=== PATIENT | female | born 1995 | race Caucasian/White ===

== ENCOUNTER 2018-02-04 01:25 | Inpatient (IN) | payer BC, OTHER ==
[2018-05-03 10:55] VITALS: BMI 47.2
[2018-05-03] MEDS ORDERED: Promethazine HCl 25 MG/ML VIAL IM PRN ×3 (11:12→14:00)
[2018-05-03] MEDS ORDERED: Ondansetron HCl/PF 4 MG/2 ML Vial IVP PRN ×4 (11:12→14:00)
[2018-05-03] MEDS ORDERED: Lactated Ringer's 1,000 ML IV SCH (11:15)
[2018-05-03] MEDS ORDERED: CEFAZOLIN/Water 2 GM/20 ML SYRINGE SLOW IVP SCH (11:15)
[2018-05-03] MEDS ORDERED: Bicitra 30 ML UDCUP PO SCH (11:15)
[2018-05-03] MEDS ORDERED: Bicitra 30 ML UDCUP ONE (11:19)
[2018-05-03] MEDS ORDERED: CEFAZOLIN/Water 2 GM/20 ML SYRINGE ONE (11:19)
[2018-05-03 11:24] LABS: Hemoglobin 12.9 g/dL (12.0-16.0); Mean Corpuscular HGB CONC 34.2 g/dL (32.0-36.0); Mean Corpuscular Hemoglobin 30.8 pg (27.0-31.0); Mean Corpuscular Volume 90.1 fL (78.0-98.0); Mean Platelet Volume 7.4 fL (7.4-10.4); Platelet Count 282 thou/uL (130-400); RBC Distribution Width 13.3 % (11.5-14.5); Red Blood Cell (RBC) Count 4.18 mill/uL (4.20-5.40); White Blood Cell (WBC) Count 13.6 thou/uL (4.8-10.8)
[2018-05-03] MEDS ORDERED: Morphine PF 1 MG/ML SYR ONE (11:46)
[2018-05-03] MEDS ORDERED: Lidocaine 1% PF 5 ML VIAL ONE (11:47)
[2018-05-03] MEDS ORDERED: PHENYLEPHRINE-NS 100 MCG/ML 10 ML SYRINGE ONE (11:47)
[2018-05-03] MEDS ORDERED: Oxytocin 10 UNITS/ML VIAL ONE ×2 (11:47→13:00)
[2018-05-03] MEDS ORDERED: ePHEDrine/0.9% NaCl/PF SYRINGE 50 mg/10 ml ONE (11:47)
[2018-05-03] MEDS ORDERED: Bupivacaine 0.75% W/DEXTROSE 8.25% 2 ML AMP ONE (11:47)
[2018-05-03] MEDS ORDERED: Ondansetron HCl/PF 4 MG/2 ML Vial ONE (11:47)
[2018-05-03] MEDS ORDERED: Promethazine HCl 25 MG/ML VIAL ONE (11:47)
[2018-05-03] MEDS ORDERED: Ketorolac Tromethamine 30 MG/ML VIAL ONE (11:47)
[2018-05-03 12:05] LABS: Syphilis Antibody Nonreactive (Nonreactive); Syphilis Antibody Index 0.05 S/CO (<1.00 Non-Reactive)
[2018-05-03 12:06] LABS: HBSAg Index 0.18 S/CO (0-0.99); Hep B Surf Ag Non-Reactive S/CO (NonReactive)
--- NOTE | 2018-05-03 12:10 | PDOC.LDHP ---
Labor and Delivery H&P Chief complaint: scheduled section HPI: 24 y/o with extremely narrow pelvis, Morbid Obesity, GHTN who has chosen to decline vaginal delivery due to her small and highly abnormal pelvic geometry. She presents for scheduled medical for GHTN and CPD. Due date: 05/15/18 Grav: 1 Para: 0 Current complications: gestational hypertension Previous surgical history: none Allergies/Adverse Reactions: Allergies Allergy/AdvReac Type Severity Reaction Status Date / Time lactose Allergy Diarrhea Verified 03/19/18 17:24 mustard Allergy Anaphylaxis Verified 03/19/18 17:23 Social history: none - Physical Exam Vital signs reviewed and normal: yes General: NAD Heart: RRR Lungs: CTAB Abdomen: gravid Extremeties: no edema FHT: category 1 - Vaginal Exam cm dilated: 0 - Assessment L&D Assessment: scheduled primary section - Plan Plan: admit to L&D, to OR for section
[2018-05-03] MEDS ORDERED: diphenhydrAMINE 50 MG/ML VIAL IVP PRN (12:27)
[2018-05-03] MEDS ORDERED: Eucerin (Mineral Oil/Petrolatum,White) 30 gm Jar TOP PRN (12:27)
[2018-05-03] MEDS ORDERED: Meperidine HCl/PF 25 MG/ML VIAL SLOW IVP PRN (12:27)
[2018-05-03] MEDS ORDERED: HYDROmorphone 2 MG/ML VIAL SLOW IVP PRN (12:27)
[2018-05-03] MEDS ORDERED: Promethazine HCl 25 MG SUPP PR PRN (12:27)
[2018-05-03] MEDS ORDERED: Naloxone HCl 0.4 mg/ml Vial IV PRN (12:27)
[2018-05-03] MEDS ORDERED: Ketorolac Tromethamine 30 MG/ML VIAL IVP PRN ×2 (12:27→17:30)
[2018-05-03] MEDS ORDERED: Naloxone HCl 0.4 mg/ml Vial IVP PRN ×4 (12:27→17:30)
[2018-05-03] MEDS ORDERED: Ketorolac Tromethamine 30 MG/ML VIAL IVP SCH (12:30)
[2018-05-03] MEDS ORDERED: Communication Order-Pharmacy FS SCH (12:30)
[2018-05-03] MEDS ORDERED: Sodium Chloride 0.9% 10 ML ONE (13:00)
[2018-05-03] MEDS ORDERED: Fentanyl 100 MCG/2 ML VIAL ONE (13:12)
[2018-05-03] MEDS ORDERED: Ibuprofen 800 MG TAB PO SCH (14:00)
[2018-05-03] MEDS ORDERED: NS / Oxytocin 40 units/1000ml 1,000 ML IV SCH (14:00)
[2018-05-03] MEDS ORDERED: Adacel (T-DAP) 0.5 ML VIAL IM ONE (14:00)
[2018-05-03] MEDS ORDERED: Simethicone Chewable 80 MG TAB PO PRN (14:00)
[2018-05-03] MEDS ORDERED: Measles/Mumps/Rubella 10 MCG/0.5 ML VIAL SC ONE (14:00)
[2018-05-03] MEDS ORDERED: Misoprostol 200 MCG TAB PR PRN (14:00)
[2018-05-03] MEDS ORDERED: Bisacodyl 10 MG SUPP PR PRN (14:00)
[2018-05-03] MEDS ORDERED: diphenhydrAMINE 25 MG CAP PO PRN (14:00)
[2018-05-03] MEDS ORDERED: Varicella virus, LIVE 0.5 ML VIAL SC ONE (14:00)
[2018-05-03] MEDS ORDERED: Lanolin Ointment 7 GM TUBE TOP PRN (14:00)
[2018-05-03] MEDS: Docusate Calcium (SURFAK) 240 MG CAP PO SCH (21:27)
[2018-05-04] MEDS ORDERED: Zolpidem Tartrate 5 MG TAB PO PRN (00:30)
[2018-05-04] MEDS: HYDROcodone/Acetaminophen 5/325 mg Tablet PO PRN ×3 (02:40→12:39)
[2018-05-04 05:09] LABS: Hemoglobin 10.6 g/dL (12.0-16.0); Mean Corpuscular HGB CONC 34.2 g/dL (32.0-36.0); Mean Corpuscular Volume 90.7 fL (78.0-98.0); Mean Platelet Volume 7.1 fL (7.4-10.4); Platelet Count 237 thou/uL (130-400); RBC Distribution Width 13.2 % (11.5-14.5); Red Blood Cell (RBC) Count 3.42 mill/uL (4.20-5.40); White Blood Cell (WBC) Count 14.7 thou/uL (4.8-10.8)
[2018-05-04] MEDS: Docusate Calcium (SURFAK) 240 MG CAP PO SCH ×2 (08:57→21:28)
[2018-05-04] MEDS: Ibuprofen 800 MG TAB PO SCH (18:24)
[2018-05-05] MEDS: HYDROcodone/Acetaminophen 5/325 mg Tablet PO PRN ×3 (01:11→12:14)
[2018-05-05] MEDS: Ibuprofen 800 MG TAB PO SCH ×2 (04:44→14:16)
[2018-05-05] MEDS: Docusate Calcium (SURFAK) 240 MG CAP PO SCH (08:56)
[2018-05-05 12:09] VITALS: BP 119/70; TEMP 98.1
--- NOTE | 2018-05-05 14:55 | PDOC.PP ---
Post Progress Note Post Day #: 1 PO intake tolerated: yes Flatus: yes Ambulation: yes Vital Signs (12 hours) Temp Pulse Resp BP BP Pulse Ox 05/05/18 11:50 98.1 F 97 18 119/70 98 05/05/18 07:35 98.6 F 80 16 119/73 98 Weight Weight 258 lb - Physical Examination General: NAD Cardiovascular: no m/r/g Respiratory: clear to auscultation bilaterally Abdominal: + bowel sounds Skin: CS incision dry & intact Neurological: no gross focal deficits Psychiatric: A&Ox3 Result Diagrams: 05/04/18 04:33 Additional Labs: Post Labs Blood Type O POSITIVE 05/03/18 10:52 Hep Bs Antigen Non-Reactive S/CO (NonReactive) 05/03/18 10:52 - Assessment/Plan POD #1 s/p primary . Doing welll
--- NOTE | 2018-05-05 14:59 | PDOC.PP ---
Post Progress Note Post Day #: 1 PO intake tolerated: yes Flatus: yes Ambulation: yes Vital Signs (12 hours) Temp Pulse Resp BP BP Pulse Ox 05/05/18 11:50 98.1 F 97 18 119/70 98 05/05/18 07:35 98.6 F 80 16 119/73 98 Weight Weight 258 lb - Physical Examination General: NAD Cardiovascular: no m/r/g Respiratory: clear to auscultation bilaterally Abdominal: + bowel sounds Extremities: negative homans (B) Skin: CS incision dry & intact Neurological: no gross focal deficits Psychiatric: A&Ox3 Result Diagrams: 05/04/18 04:33 Additional Labs: Post Labs Blood Type O POSITIVE 05/03/18 10:52 Hep Bs Antigen Non-Reactive S/CO (NonReactive) 05/03/18 10:52 - Assessment/Plan Patient is POD 1. and doing well. Continue care.
--- NOTE | 2018-05-05 15:14 | OP-2 ---
DATE OF PROCEDURE: 05/03/2018 PREOPERATIVE DIAGNOSES: Intrauterine at 38 weeks with a history of gestational hypertensio n and cephalopelvic disproportion. POSTOPERATIVE DIAGNOSES: Intrauterine at 38 weeks with a history of gestational hypertensi on and cephalopelvic disproportion. PROCEDURE: Primary low transverse section. FINDINGS: Viable male infant weighing 3483 grams or 7 pounds 11 ounces, Apgars of 8 and 9. QUANTITATIVE BLOOD LOSS: 1005 mL COMPLICATIONS: None. DETAILS OF THE PROCEDURE: The patient was consented and taken back to the operating room where spina l anesthesia was found to be adequate. She was then prepped and draped in the normal sterile fashion . A time out was performed by the entire operative team. The incision was then marked with a marking pen tested using sharp pickups. An incision was then made with a scalpel. The incision was carried through the adipose tissue down to the underlying rectus fascia using both sharp dissection as well as cautery. Once the fascia was identified, it was incised in the midline and then the fascial incis ion was carried through in both lateral directions using sharp as well as cautery dissection techniqu es. Next, the superior aspect of the rectus fascia was grasped with 2 Darrin clamps which was tented up and the rectus muscles were dissected off using blunt dissection as well as cautery dissection. Similarly, the inferior aspect of the fascial incision was grasped with 2 Darrin clamps, tented up an d the rectus muscles were dissected off bluntly as well as sharply. Next, the rectus muscles were se parated in the midline and the peritoneum identified. The peritoneum was then carefully grasped with two hemostats and entered sharply. The peritoneal incision was extended superiorly and inferiorly a nd bladder blade was placed in the lower abdomen. At this point, the uterus was identified and the b ladder flap was then developed using pickups with teeth as well as Metzenbaum scissors in both latera l directions. The bladder flap was then dissected downwards using the skoog operator's finger as well as M etzenbaum scissors. The bladder blade was replaced. The lower uterine segment was then identified a nd entered sharply using a clean scalpel. The uterine incision was then dissected downwards until th in layer of muscle remained and this was entered bluntly using a hemostat to avoid any injury to the baby. The uterine incision was then stretched using two fingers in both lateral directions. An amniotomy was performed artificially using a hemostat and the baby was delivered using fundal pres sure in a gentle fashion. Once out, the baby's mouth and nose were bulb suctioned, cord clamped and cut, and the baby was handed to waiting attendants. Next, the uterus was exteriorized, cleared of al l clots and debris and the uterine incision was repaired with #1 Monocryl in a running locking fashio n. A second suture of the same type was used to obtain complete hemostasis at the uterine incision. The bladder flap was reapproximated using 3-0 Monocryl. Next, patient's left and right adnexa were inspected and appeared to be within normal limits. The posterior cul-de-sac was blotted dry and hemo stasis assured. One more look at the uterine incision demonstrated hemostasis. Next, the uterus was replaced back within the abdomen. The peritoneum was reapproximated using 2-0 Monocryl without diff iculty. The rectus muscles were then allowed to come back together and 0 chromic was used to aid in reapproximation of the muscle as necessary. The rectus fascia was then reapproximated in a running f ashion using 0 Vicryl suture. The adipose tissue was then examined and appeared to be well approxima yakelin without any obvious separations. Finally, the skin was reapproximated with 3-0 Monocryl on a Solo th needle without difficulty and Dermabond adhesive was applied to the skin. Once the glue was dry, the drapes were removed and the patient was transferred to an ambulatory bed where she was taken to [facility] awake and in stable condition. Sponge, lap, and needle counts were correct x3.
== END 2018-05-05 17:55 | disposition home or self-care (01) | DRG 765 ==
LOC: L&D 05-03 10:04 → 3SW 05-03 16:13
PROVIDERS: ADMIT Obstetrics & Gynecology; ATTEND Obstetrics & Gynecology
PROC: 10907ZC Drainage of Amniotic Fluid, Therapeutic from Products of Conception, Via Natural or Artificial Opening (ICD-10-PCS; principal; 2018-05-03)
PROC: 10D00Z1 Extraction of Products of Conception, Low, Open Approach (ICD-10-PCS; 2018-05-03)
DX: O13.3 Gestational [pregnancy-induced] hypertension without significant proteinuria, third trimester (principal); Z68.42 Body mass index [BMI] 45.0-49.9, adult; O99.214 Obesity complicating childbirth; E66.01 Morbid (severe) obesity due to excess calories; O33.9 Maternal care for disproportion, unspecified; O99.52 Diseases of the respiratory system complicating childbirth; Z3A.38 38 weeks gestation of pregnancy; Z37.0 Single live birth; J44.9 Chronic obstructive pulmonary disease, unspecified
CPT/HCPCS: 36415; 51702; 85027; 86780; 86850; 86900; 86901; 87340; 88305; 90707; 90715; 90716; J1885; J2001; J2274; J2405; J2550; J2590; J3010; J3490

== ENCOUNTER 2018-03-19 16:52 | Day surgery (SDC) | payer BC, OTHER ==
[2018-03-19 17:25] VITALS: BMI 45.7
[2018-03-19 17:26] VITALS: BP 128/76; TEMP 98.4
[2018-03-19 18:47] LABS: Bilirubin Negative (Negative); Blood, Urine Negative (Negative); Clarity CLOUDY (Clear); Glucose, Urine (Dipstick) Negative (Negative); Leukocyte Negative (Negative); Nitrite Negative (Negative); Protein, Urine (Dipstick) Negative (Neg-Trace); Urobilinogen 0.2 mg/dL (0.2-1.0); pH, Urine 7.5 (5.0-9.0)
[2018-03-19 18:49] LABS: Bacteria/HPF Rare-Few HPF (None Seen); Hyaline Casts/LPF 0-3 HYALINE CAST LPF (0-3 Hyaline); Pathc Cast-AUWi Flag 0.43 (0-2.49); RBC/HPF 0-3 HPF (0-3)
--- NOTE | 2018-03-20 10:20 | SS ---
DATE OF SERVICE: 03/19/2018 OB ER ENCOUNTER PRIMARY OB: Dr. Santos Hutton. CHIEF COMPLAINT: Abdominal pains and pelvic pain. HISTORY OF PRESENT ILLNESS: The patient is a 22-year-old G1, P0 female with an intrauterine pregnanc y at 32 weeks and 3 days, followed by Dr. Santos Chester. The patient is presenting with a 2-week hist ory of abdominal pains with a worsening of her pain in the last 24 hours. The patient describes the pain that is sharp and associated with movement and activity, also reports the pain that comes and go es with tightening of her stomach that comes at intervals that patient is unable to report how often these pains are happening. The patient's mother is leaving town soon and just wants to be sure thing s are okay before she leaves. The patient denies any recent illness, fever, fall, headache, chest pa in, shortness of breath, nausea, vomiting. She denies diarrhea, constipation. She denies hip proble ms, knee problems, muscle weakness. She reports that her pain is mainly in the left lower quadrant w ith activity. PAST MEDICAL HISTORY: Significant for Tourette's and anxiety. PAST SURGICAL HISTORY: Noncontributory. ALLERGIES: No known drug allergies. MEDICATIONS: vitamins. SOCIAL HISTORY: Denies drug, alcohol or tobacco use. REVIEW OF SYSTEMS: Per HPI. PHYSICAL EXAMINATION: VITAL SIGNS: Blood pressure 128/76, heart rate of 104, respiratory rate 18, satting 99% on room air, temperature 98.4. GENERAL: She appears to be in no acute distress. She is alert and oriented, cooperative and pleasan t to interact with. HEENT: Head is normocephalic, atraumatic. CHEST: Clear to auscultation bilaterally. HEART: Has regular rate and rhythm. ABDOMEN: Soft. She does have some tenderness with deviation of the uterus to the patient's right cr eating left-sided tenderness, associated with some of the reported pain. EXTREMITIES: Nontender, nonedematous. PELVIC: Vulva is without masses, lesions or erythema. Vagina is moist, with some discharge, primari ly white and with smooth texture. The cervix is closed and firm on digital exam. heart tracing performed for abdominal pain in for approximately 45 minutes to an hour . Baseline is noted to be in the 140s with moderate long-term variability, positive 15 x 15 accelera tions. Tocometer did not show any contractions visible on the monitor. LABORATORY STUDIES: Urinalysis and ORACLE PROGRAMMER ANALYST-3 were performed for evaluation of urinary tract infection and vaginitis screen. The urine was negative for protein, glucose, ketones, nitrites, leukocyte esteras e. She had 4-6 white blood cells and 7-10 squamous cells and rare to few bacteria. ORACLE PROGRAMMER ANALYST-3 was positiv e for Gardnerella, negative for yeast or Trichomonas. ASSESSMENT AND PLAN: The patient is a 22-year-old female with an intrauterine at 32 weeks, presenting for abdominal pains that have worsened in the last 24 hours intermittently, much of her p ain I believe is associated with musculoskeletal pains of . She may be having some contract ions irregularly, but unable to identify any evidence of labor. Cervix is closed and firm with no ev idence of presenting parts through the vaginal wall. The patient does have bacterial vaginosis and has been given metronidazole 500 mg to be taken twice a day for the next 7 days. She has been g iven labor precautions and been asked to call Dr. Hutton tomorrow to make a followup visit.
== END 2018-03-19 20:15 | disposition home or self-care (01) ==
LOC: L&D/OP 16:52
PROVIDERS: ATTEND Obstetrics & Gynecology
DX: O99.89 Other specified diseases and conditions complicating pregnancy, childbirth and the puerperium (principal); R10.9 Unspecified abdominal pain; R10.2 Pelvic and perineal pain; Z3A.32 32 weeks gestation of pregnancy
CPT/HCPCS: 81001; 87480; 87510; 87660

== ENCOUNTER 2018-12-14 22:45 | Emergency (ER) | payer BC, OTHER ==
[2018-12-14 23:14] LABS: Bilirubin Negative (Negative); Blood, Urine Trace (Negative); Clarity CLOUDY (Clear); Glucose, Urine (Dipstick) Negative (Negative); Leukocyte Negative (Negative); Nitrite Negative (Negative); Protein, Urine (Dipstick) Negative (Neg-Trace); Specific Gravity, Urine 1.025 (1.002-1.036); Urobilinogen 0.2 mg/dL (0.2-1.0); pH, Urine 5.5 (5.0-9.0)
[2018-12-14 23:15] LABS: Bacteria/HPF 1+ HPF (None Seen); Hyaline Casts/LPF 0-3 HYALINE CAST LPF (0-3 Hyaline); Pathc Cast-AUWi Flag 0.54 (0-2.49)
[2018-12-14 23:17] LABS: Pregnancy Test - Urine (BHCG) Negative (Negative); Pregu Control Background? CLEAR/WHITE (CLR/WHITE); Pregu Control Bar Appear? YES (CONTROL BAR); Specific Gravity 1.025 (1.002-1.036)
[2018-12-14 23:31] LABS: #Basophils 0.1 thou/uL (0.0-0.2); #Eosinphils 0.1 thou/uL (0.0-0.7); #Lymphocytes 3.2 thou/uL (1.20-3.40); #Monocytes 0.8 thou/uL (0.11-0.59); #Neutrophils 6.7 thou/uL (1.40-6.50); %Basophils 0.6 % (0.0-1.0); %Eosinophils 0.9 % (0.0-10.0); %Lymphocytes 29.7 % (21.0-51.0); %Neutrophils 61.9 % (42.0-75.0); Mean Corpuscular HGB CONC 33.4 g/dL (32.0-36.0); Mean Corpuscular Hemoglobin 30.3 pg (27.0-31.0); Mean Corpuscular Volume 90.6 fL (78.0-98.0); Mean Platelet Volume 7.3 fL (7.4-10.4); Platelet Count 298 thou/uL (130-400); RBC Distribution Width 12.4 % (11.5-14.5); Red Blood Cell (RBC) Count 4.28 mill/uL (4.20-5.40); White Blood Cell (WBC) Count 10.8 thou/uL (4.8-10.8)
[2018-12-14] MEDS ORDERED: Ketorolac Tromethamine 30 MG/ML VIAL ONE (23:34)
[2018-12-14 23:42] LABS: ALT (SGPT) 16 U/L (8-55); AST (SGOT) 13 U/L (5-34); Albumin 4.3 g/dL (3.5-5.0); Alkaline Phosphatase 103 U/L (40-150); Anion Gap 12 mmol/L (10-20); BUN (Urea Nitrogen) 19 mg/dL (7.0-18.7); Bilirubin, Total 0.3 mg/dL (0.2-1.2); Calc. Creatinine Clearance 0 mL/min (70-130); Calcium 9.4 mg/dL (7.8-10.44); Carbon Dioxide 26 mmol/L (22-29); Chloride 103 mmol/L (98-107); Estimated GFR-MDRD 80; Globulin 3.4 g/dL (2.4-3.5); Glucose 83 mg/dL (70-105); Potassium 3.7 mmol/L (3.5-5.1); Protein, Total 7.7 g/dL (6.0-8.3); Sodium 137 mmol/L (136-145)
--- NOTE | 2018-12-15 07:34 | ULT ---
TRANSABDOMINAL PELVIC ULTRASOUND: INDICATION: Right lower quadrant abdominal pain with nausea. TECHNIQUE: Moya scale, color Doppler, and spectral Doppler images were obtained of the pelvis via transabdominal approach only. FINDINGS: The uterus measures 10.3 x 3.8 x 4.1 cm. The endometrial stripe measures 8.6 mm. The right ovary measures 3 x 1.9 x 24 cm. The left ovary measures 2.8 x 2.1 x 2.4 cm. There is norm al flow to both ovaries. No free fluid is evident. IMPRESSION: Sonographically normal pelvis. POS: BH
== END 2018-12-15 02:31 | disposition home or self-care (01) ==
LOC: ERS 22:45
DX: R10.31 Right lower quadrant pain (principal); F41.9 Anxiety disorder, unspecified
CPT/HCPCS: 36415; 76856; 80053; 81003; 81015; 81025; 85025; 93976; 96372; J1885

== ENCOUNTER 2021-12-20 18:11 | Emergency (ER) | payer OTHER, SELFPAY | END 2021-12-20 20:37 | disposition home or self-care (01) | LOC: ERS 18:11 | DX: R51.9 Headache, unspecified (principal) | CPT/HCPCS: 70450 ==

== ENCOUNTER 2022-04-10 17:28 | Emergency (ER) | payer BC, SELFPAY ==
[2022-04-10 18:04] LABS: #Basophils 0.1 thou/uL (0.0-0.2); #Eosinphils 0.1 thou/uL (0.0-0.7); #Lymphocytes 2.3 thou/uL (1.20-3.40); #Monocytes 0.6 thou/uL (0.11-0.59); %Basophils 0.5 % (0.0-1.0); %Eosinophils 0.8 % (0.0-10.0); %Lymphocytes 20.6 % (21.0-51.0); %Monocytes 5.6 % (0.0-10.0); %Neutrophils 72.6 % (42.0-75.0); Hemoglobin 12.7 g/dL (12.0-16.0); Mean Corpuscular HGB CONC 33.3 g/dL (32.0-36.0); Mean Corpuscular Volume 93.2 fL (78.0-98.0); Mean Platelet Volume 7.2 fL (7.4-10.4); Platelet Count 304 thou/uL (130-400); RBC Distribution Width 11.8 % (11.5-14.5); Red Blood Cell (RBC) Count 4.08 mill/uL (4.20-5.40)
[2022-04-10 18:11] LABS: BHCG - Serum Negative (NEGATIVE); Pregs Control Background? CLEAR/WHITE (CLR/WHITE); Pregs Control Bar Appear? YES (CONTROL BAR)
[2022-04-10 18:24] LABS: ALT (SGPT) 15 U/L (8-55); AST (SGOT) 11 U/L (5-34); Albumin 4.2 g/dL (3.5-5.0); Alkaline Phosphatase 75 U/L (40-110); Anion Gap 16 mmol/L (10-20); BUN (Urea Nitrogen) 14 mg/dL (7.0-18.7); Bilirubin, Total 0.2 mg/dL (0.2-1.2); Calc. Creatinine Clearance 0 mL/min (70-130); Calcium 9.3 mg/dL (7.8-10.44); Carbon Dioxide 24 mmol/L (22-29); Chloride 104 mmol/L (98-107); Estimated GFR 85; Globulin 3.4 g/dL (2.4-3.5); Glucose 93 mg/dL (70-105); Potassium 3.8 mmol/L (3.5-5.1); Protein, Total 7.6 g/dL (6.0-8.3); Sodium 140 mmol/L (136-145)
== END 2022-04-10 19:05 | disposition home or self-care (01) ==
LOC: ERS 17:28
DX: R07.2 Precordial pain (principal)
CPT/HCPCS: 36415; 71045; 80053; 84703; 85025; 93005

== ENCOUNTER 2023-04-27 16:58 | Emergency (ER) | payer BC ==
[2023-04-27 17:39] LABS: Pregnancy Test - Urine (BHCG) Negative (Negative); Pregu Control Background? CLEAR/WHITE (CLR/WHITE); Pregu Control Bar Appear? YES (CONTROL BAR); Specific Gravity 1.014 (1.002-1.036)
[2023-04-27 17:51] LABS: #Basophils 0.1 thou/uL (0.0-0.2); #Eosinphils 0.1 thou/uL (0.0-0.7); #Monocytes 0.8 thou/uL (0.11-0.59); #Neutrophils 7.8 thou/uL (1.40-6.50); %Basophils 0.4 % (0.0-1.0); %Eosinophils 1.1 % (0.0-10.0); %Lymphocytes 26.1 % (21.0-51.0); %Monocytes 6.7 % (0.0-10.0); %Neutrophils 65.2 % (42.0-75.0); Hematocrit 38.1 % (36.0-47.0); Hemoglobin 12.5 g/dL (12.0-16.0); Mean Corpuscular HGB CONC 32.8 g/dL (32.0-36.0); Mean Corpuscular Hemoglobin 28.9 pg (27.0-31.0); Mean Platelet Volume 9.4 fL (7.4-10.4); Platelet Count 288 10x3/uL (130-400); RBC Distribution Width 13.2 % (11.5-14.5); Red Blood Cell (RBC) Count 4.33 mill/uL (4.20-5.40); White Blood Cell (WBC) Count 11.9 10x3/uL (4.8-10.8)
[2023-04-27 17:59] LABS: BHCG - Serum Negative (NEGATIVE); Pregs Control Background? CLEAR/WHITE (CLR/WHITE); Pregs Control Bar Appear? YES (CONTROL BAR)
[2023-04-27 18:16] LABS: ALT (SGPT) 17 U/L (8-55); AST (SGOT) 12 U/L (5-34); Albumin 4.2 g/dL (3.5-5.0); Alkaline Phosphatase 95 U/L (40-110); Anion Gap 12 mmol/L (10-20); BUN (Urea Nitrogen) 15 mg/dL (7.0-18.7); Bilirubin, Total 0.2 mg/dL (0.2-1.2); Calc. Creatinine Clearance 0 mL/min (70-130); Calcium 9.7 mg/dL (7.8-10.44); Carbon Dioxide 24 mmol/L (22-29); Chloride 103 mmol/L (98-107); Estimated GFR 85; Globulin 3.4 g/dL (2.4-3.5); Glucose 107 mg/dL (70-105); Lipase 21 U/L (8-78); Potassium 3.9 mmol/L (3.5-5.1); Protein, Total 7.6 g/dL (6.0-8.3); Sodium 135 mmol/L (136-145)
[2023-04-27 19:32] LABS: Bacteria/HPF None Seen HPF (None Seen); Bilirubin Negative (Negative); Blood, Urine Trace (Negative); CAUTI Indications for Culture Pregnancy; Clarity Clear (Clear); Glucose, Urine (Dipstick) Normal (Negative); Ketone, Urine Negative (Negative); Leukocyte Negative Leu/uL (Negative); Nitrite Negative (Negative); Protein, Urine (Dipstick) Negative (Neg-Trace); RBC/HPF 0-3 HPF (0-3); Specific Gravity, Urine 1.014 (1.002-1.036); Squamous Epithelial 0-3 HPF (0-3); Urobilinogen Normal mg/dL (Less than 2); WBC/HPF 0-3 HPF (0-3)
[2023-04-27 19:35] LABS: Urine Culture Reflex Yes Yes
== END 2023-04-27 19:21 | disposition home or self-care (01) ==
LOC: ERS 16:58
DX: R53.83 Other fatigue (principal)
CPT/HCPCS: 36415; 80053; 81001; 81025; 83690; 84703; 85025; 87086; 99283

== ENCOUNTER 2023-05-04 09:26 | Emergency (ER) | payer BC ==
[2023-05-04 09:51] LABS: #Eosinphils 0.2 thou/uL (0.0-0.7); #Monocytes 0.7 thou/uL (0.11-0.59); #Neutrophils 7.1 thou/uL (1.40-6.50); %Basophils 0.4 % (0.0-1.0); %Eosinophils 1.5 % (0.0-10.0); %Lymphocytes 21.8 % (21.0-51.0); %Monocytes 6.7 % (0.0-10.0); %Neutrophils 69.1 % (42.0-75.0); Hematocrit 39.2 % (36.0-47.0); Hemoglobin 12.9 g/dL (12.0-16.0); Mean Corpuscular HGB CONC 32.9 g/dL (32.0-36.0); Mean Corpuscular Hemoglobin 29.1 pg (27.0-31.0); Mean Corpuscular Volume 88.5 fl (78.0-98.0); Mean Platelet Volume 9.4 fL (7.4-10.4); Platelet Count 272 10x3/uL (130-400); RBC Distribution Width 13.3 % (11.5-14.5); Red Blood Cell (RBC) Count 4.43 mill/uL (4.20-5.40); White Blood Cell (WBC) Count 10.2 10x3/uL (4.8-10.8)
[2023-05-04 09:52] LABS: Bacteria/HPF None Seen HPF (None Seen); Bilirubin Negative (Negative); Blood, Urine Trace (Negative); CAUTI Indications for Culture Pregnancy; Clarity Clear (Clear); Glucose, Urine (Dipstick) Normal (Negative); Ketone, Urine Negative (Negative); Leukocyte Negative Leu/uL (Negative); Nitrite Negative (Negative); Protein, Urine (Dipstick) Negative (Neg-Trace); RBC/HPF 0-3 HPF (0-3); Squamous Epithelial 0-3 HPF (0-3); Urobilinogen Normal mg/dL (Less than 2); WBC/HPF 0-3 HPF (0-3)
[2023-05-04 09:55] LABS: Urine Culture Reflex Yes Yes
[2023-05-04 10:15] LABS: ALT (SGPT) 15 U/L (8-55); AST (SGOT) 12 U/L (5-34); Albumin 4.1 g/dL (3.5-5.0); Alkaline Phosphatase 95 U/L (40-110); Anion Gap 12 mmol/L (10-20); BUN (Urea Nitrogen) 12 mg/dL (7.0-18.7); Bilirubin, Total 0.3 mg/dL (0.2-1.2); Calc. Creatinine Clearance 0 mL/min (70-130); Carbon Dioxide 25 mmol/L (22-29); Chloride 103 mmol/L (98-107); Estimated GFR 92; Globulin 3.5 g/dL (2.4-3.5); Glucose 107 mg/dL (70-105); Lipase 22 U/L (8-78); Magnesium 1.8 mg/dL (1.6-2.6); Potassium 3.6 mmol/L (3.5-5.1); Protein, Total 7.6 g/dL (6.0-8.3); Sodium 136 mmol/L (136-145)
[2023-05-04 10:19] LABS: Troponin I Less than 0.010 ng/mL (< 0.028)
== END 2023-05-04 11:05 | disposition home or self-care (01) ==
LOC: ERS 09:26
DX: I47.1 Supraventricular tachycardia (principal)
CPT/HCPCS: 71045; 80053; 81001; 83690; 83735; 84484; 84702; 85025; 87086; 93005

== ENCOUNTER 2023-05-04 15:53 | Emergency (ER) | payer BC ==
[~2023-05-04 15:53] MED LIST: Iopamidol-370 76% 500 ML MDV (1 ML CHARGE) ONE
== END 2023-05-04 18:03 | disposition home or self-care (01) ==
LOC: ERS 15:53
DX: R00.2 Palpitations (principal)
CPT/HCPCS: 71045; 71275; 80053; 81001; 83690; 83735; 84484; 84702; 85025; 87086; 93005; 96360; 99283; Q9967

== ENCOUNTER 2023-07-26 00:14 | Emergency (ER) | payer BC | END 2023-07-26 02:00 | disposition left against medical advice (07) | LOC: ERS 00:14 | DX: Z53.21 Procedure and treatment not carried out due to patient leaving prior to being seen by health care provider (principal) | CPT/HCPCS: 93005 ==

== ENCOUNTER 2024-05-31 19:03 | Emergency (ER) | payer BC ==
[2024-05-31 19:49] LABS: #Basophils 0.05 10x3/uL (0.0-0.2); #Eosinophils Less than 0.03 10x3/uL (0.0-0.7); %Basophils 0.4 % (0.0-1.0); %Eosinophils 0.1 % (0.0-10.0); %Lymphocytes 18.4 % (21.0-51.0); %Monocytes 4.7 % (0.0-10.0); %Neutrophils 76.1 % (42.0-75.0); Hematocrit 39.1 % (36.0-47.0); Hemoglobin 12.5 g/dL (12.0-16.0); Mean Corpuscular Hemoglobin 27.5 pg (27.0-31.0); Mean Corpuscular Volume 85.9 fL (78.0-98.0); Mean Platelet Volume 9.3 fL (7.4-10.4); Platelet Count 355 10x3/uL (130-400); RBC Distribution Width 16.1 % (11.5-14.5); Red Blood Cell (RBC) Count 4.55 mill/uL (4.20-5.40)
[2024-05-31] MEDS ORDERED: Metoprolol Tartrate 5 MG (5 mL) VIAL ONE (19:55)
[2024-05-31 19:58] LABS: BHCG - Serum Negative (NEGATIVE); Pregs Control Background? CLEAR/WHITE (CLR/WHITE); Pregs Control Bar Appear? YES (CONTROL BAR)
[2024-05-31 20:05] LABS: ALT (SGPT) 13 U/L (8-55); AST (SGOT) 11 U/L (5-34); Albumin 3.6 g/dL (3.5-5.0); Alkaline Phosphatase 79 U/L (40-110); Anion Gap 14 mmol/L (10-20); BUN (Urea Nitrogen) 14 mg/dL (7.0-18.7); Bilirubin, Total 0.2 mg/dL (0.2-1.2); Calc. Creatinine Clearance 0 mL/min (70-130); Calcium 9.5 mg/dL (7.8-10.44); Carbon Dioxide 24 mmol/L (22-29); Chloride 106 mmol/L (98-107); Estimated GFR 83; Globulin 3.9 g/dL (2.4-3.5); Glucose 125 mg/dL (70-105); Lipase 23 U/L (8-78); Potassium 3.6 mmol/L (3.5-5.1); Protein, Total 7.5 g/dL (6.0-8.3); Sodium 140 mmol/L (136-145)
[2024-05-31 20:10] LABS: Troponin I Less than 0.010 ng/mL (< 0.028)
== END 2024-05-31 20:47 | disposition home or self-care (01) ==
LOC: ERS 19:03
DX: R07.89 Other chest pain (principal)
CPT/HCPCS: 36415; 71045; 80053; 83690; 84484; 84703; 85025; 85379; 93005; 96374

== ENCOUNTER → 2024-06-12 | Emergency (ER) | payer BC | LOC: ERS 16:48 | DX: Z53.21 Procedure and treatment not carried out due to patient leaving prior to being seen by health care provider (principal) ==

== ENCOUNTER 2024-08-06 12:06 | Emergency (ER) | payer BC ==
[2024-08-06 12:51] LABS: #Basophils 0.04 10x3/uL (0.0-0.2); %Basophils 0.4 % (0.0-1.0); %Eosinophils 1.7 % (0.0-10.0); %Monocytes 5.2 % (0.0-10.0); %Neutrophils 59.3 % (42.0-75.0); Hematocrit 38.7 % (36.0-47.0); Hemoglobin 12.3 g/dL (12.0-16.0); Mean Corpuscular HGB CONC 31.8 g/dL (32.0-36.0); Mean Corpuscular Hemoglobin 28.1 pg (27.0-31.0); Mean Corpuscular Volume 88.4 fL (78.0-98.0); Mean Platelet Volume 9.2 fL (7.4-10.4); Platelet Count 279 10x3/uL (130-400); RBC Distribution Width 13.8 % (11.5-14.5); Red Blood Cell (RBC) Count 4.38 mill/uL (4.20-5.40)
[2024-08-06 13:13] LABS: ALT (SGPT) 13 U/L (8-55); AST (SGOT) 14 U/L (5-34); Albumin 3.4 g/dL (3.5-5.0); Alkaline Phosphatase 69 U/L (40-110); Anion Gap 12 mmol/L (10-20); BUN (Urea Nitrogen) 13 mg/dL (7.0-18.7); Bilirubin, Total 0.2 mg/dL (0.2-1.2); Calc. Creatinine Clearance 0 mL/min (70-130); Calcium 8.4 mg/dL (7.8-10.44); Carbon Dioxide 23 mmol/L (22-29); Chloride 107 mmol/L (98-107); Estimated GFR 99; Globulin 2.9 g/dL (2.4-3.5); Glucose 87 mg/dL (70-105); Magnesium 1.9 mg/dL (1.6-2.6); Potassium 3.9 mmol/L (3.5-5.1); Protein, Total 6.3 g/dL (6.0-8.3); Sodium 138 mmol/L (136-145)
[2024-08-06 13:25] LABS: BHCG - Serum Negative (NEGATIVE); Pregs Control Background? CLEAR/WHITE (CLR/WHITE); Pregs Control Bar Appear? YES (CONTROL BAR)
== END 2024-08-06 14:05 | disposition home or self-care (01) ==
LOC: ERS 12:06
DX: I47.10 Supraventricular tachycardia, unspecified (principal)
CPT/HCPCS: 36415; 80053; 83735; 84703; 85025; 93005; 99284

== ENCOUNTER 2024-08-31 19:04 | Emergency (ER) | payer BC ==
[2024-08-31 20:58] LABS: #Basophils 0.05 10x3/uL (0.0-0.2); %Basophils 0.4 % (0.0-1.0); %Eosinophils 0.7 % (0.0-10.0); %Lymphocytes 22.9 % (21.0-51.0); %Monocytes 6.9 % (0.0-10.0); %Neutrophils 68.7 % (42.0-75.0); Hematocrit 41.6 % (36.0-47.0); Hemoglobin 13.7 g/dL (12.0-16.0); Mean Corpuscular HGB CONC 32.9 g/dL (32.0-36.0); Mean Corpuscular Volume 87.9 fL (78.0-98.0); Mean Platelet Volume 9.7 fL (7.4-10.4); Platelet Count 362 10x3/uL (130-400); RBC Distribution Width 14.2 % (11.5-14.5); Red Blood Cell (RBC) Count 4.73 mill/uL (4.20-5.40)
[2024-08-31 21:11] LABS: ALT (SGPT) 12 U/L (8-55); AST (SGOT) 13 U/L (5-34); Albumin 3.5 g/dL (3.5-5.0); Alkaline Phosphatase 83 U/L (40-110); Anion Gap 13 mmol/L (10-20); BUN (Urea Nitrogen) 13 mg/dL (7.0-18.7); Bilirubin, Total 0.2 mg/dL (0.2-1.2); Calc. Creatinine Clearance 0 mL/min (70-130); Calcium 8.6 mg/dL (7.8-10.44); Carbon Dioxide 25 mmol/L (22-29); Chloride 105 mmol/L (98-107); Estimated GFR 95; Globulin 3.3 g/dL (2.4-3.5); Glucose 100 mg/dL (70-105); Potassium 3.7 mmol/L (3.5-5.1); Protein, Total 6.8 g/dL (6.0-8.3); Sodium 139 mmol/L (136-145)
[2024-08-31 21:14] LABS: Troponin I Less than 0.010 ng/mL (< 0.028)
== END 2024-08-31 21:46 | disposition home or self-care (01) ==
LOC: ERS 19:04
DX: R00.0 Tachycardia, unspecified (principal); R00.2 Palpitations; R11.10 Vomiting, unspecified
CPT/HCPCS: 71045; 80053; 84484; 85025; 93005

== ENCOUNTER 2025-06-14 00:24 | Emergency (ER) | payer BC ==
[2025-06-14 01:55] LABS: #Basophils 0.06 10x3/uL (0.0-0.2); #Eosinophils 0.09 10x3/uL (0.0-0.7); #Monocytes 0.85 10x3/uL (0.11-0.59); #Neutrophils 8.90 10x3/uL (1.40-6.50); %Basophils 0.5 % (0.0-1.0); %Eosinophils 0.7 % (0.0-10.0); %Lymphocytes 21.7 % (21.0-51.0); %Monocytes 6.7 % (0.0-10.0); %Neutrophils 70.1 % (42.0-75.0); Hematocrit 40.7 % (36.0-47.0); Hemoglobin 13.2 g/dL (12.0-16.0); Mean Corpuscular Hemoglobin 29.1 pg (27.0-31.0); Mean Corpuscular Volume 89.6 fL (78.0-98.0); Platelet Count 316 10x3/uL (130-400); Red Blood Cell (RBC) Count 4.54 mill/uL (4.20-5.40); White Blood Cell (WBC) Count 12.70 10x3/uL (4.8-10.8)
[2025-06-14 02:01] LABS: CAUTI Indications for Culture Alt mental st,lethar; Glucose, Urine (Dipstick) Normal (Negative); Leukocyte Negative Leu/uL (Negative); Protein, Urine (Dipstick) Negative (Neg-Trace); RBC/HPF 0-3 HPF (0-3); Specific Gravity, Urine 1.009 (1.002-1.036); WBC/HPF 0-3 HPF (0-3)
[2025-06-14 02:02] LABS: Bacteria/HPF 1+ HPF (None Seen); Urine Culture Reflex No No
[2025-06-14 02:07] LABS: Cocaine Metabolite Screen Negative (Negative); THC/Cannabinoid Screen Negative (Negative); Tricyclic Screen Negative (Negative)
[2025-06-14 02:25] LABS: Acetaminophen Less than 10 mcg/mL (Less than 10); Salicylate Less than 8.0 mg/dL (Less than 8.0)
[2025-06-14 02:26] LABS: ALT (SGPT) 15 U/L (Less than 34); AST (SGOT) 16 U/L (11-34); Albumin 4.3 g/dL (3.1-4.5); Alkaline Phosphatase 90 U/L (40-110); Anion Gap 11 mmol/L (10-20); BUN (Urea Nitrogen) 14 mg/dL (7.0-18.7); Bilirubin, Total 0.2 mg/dL (0.3-1.2); Calc. Creatinine Clearance 0 mL/min (70-130); Calcium 9.0 mg/dL (7.8-10.44); Carbon Dioxide 24 mmol/L (22-29); Chloride 106 mmol/L (98-107); Globulin 3.5 g/dL (2.4-3.5); Glucose 99 mg/dL (70-105); Potassium 3.1 mmol/L (3.5-5.1); Sodium 138 mmol/L (136-145)
== END 2025-06-14 02:55 | disposition home or self-care (01) ==
LOC: ERS 00:24
DX: R51.9 Headache, unspecified (principal); E87.6 Hypokalemia
CPT/HCPCS: 70450; 80053; 80306; 80307; 81001; 84443; 85025; 93005